=== PATIENT | male | born 1970 | race Caucasian/White ===

== ENCOUNTER 2018-12-06 04:50 | Emergency (ER) | payer MEDICAID ==
[2018-12-06] MEDS: SOD CHLORIDE 0.9% 500 ML IV (05:45)
[2018-12-06] MEDS: CEFAZOLIN 1 GM/50 ML (PMX) 50 ML IVPB (05:51)
[2018-12-06] MEDS: DIPHTH/TET/ACEL PERTUSS (ADULT) 0.5 ML VIAL IM* (05:55)
[2018-12-06] MEDS: morphine 4 MG/ML VIAL IV (05:55)
[2018-12-06] MEDS: LIDOCAINE 1% (MDV) 20 ML INJ SC (07:26)
== END 2018-12-06 08:18 | disposition home or self-care (01) ==
LOC: E/R 04:50
DX: S62.339A Displaced fracture of neck of unspecified metacarpal bone, initial encounter for closed fracture (principal); Y04.8XXA Assault by other bodily force, initial encounter; Z23 Encounter for immunization
CPT/HCPCS: 12002; 73110-RT; 73130-LT; 73130-RT; 90471; 90715; 96374; 96375; 99284-25